=== PATIENT | male | born 1985 | race Caucasian/White ===

== ENCOUNTER → 2016-06-06 | Outpatient (CLI) | payer OTHER | LOC: M OUTALCOH 07:54 | PROVIDERS: ATTEND Psychiatry & Neurology Psychiatry | DX: Z13.9 Encounter for screening, unspecified (principal) ==

== ENCOUNTER 2017-11-10 07:37 | Emergency (ER) | payer OTHER, MEDICAID | END 2017-11-10 08:19 | disposition home or self-care (01) | LOC: M ED 07:37 | DX: H65.01 Acute serous otitis media, right ear (principal); K08.89 Other specified disorders of teeth and supporting structures; R59.1 Generalized enlarged lymph nodes | CPT/HCPCS: 99282 ==

== ENCOUNTER → 2018-12-24 | Outpatient (CLI) | payer MEDICAID, OTHER ==
[~2018-12-24] MED LIST: AMOX875T PO; IBUP-1022 PO; LOVE1INJ SC; MAGICMW SSP; SUDA1TAB3 PO
--- NOTE | 2018-12-24 18:43 | REP ---
Right upper extremity duplex venous ultrasound: History: Establish venous patency. Comparison is made with report of a prior study from [facility] dated November 02, 2018 showing thrombus in the right axillary vein extending to the proximal basilic vein. Findings: There is a focal nearly occlusive thrombus in the right subclavian vein. There is still some patency of the right subclavian vein but collateral is seen at the level of the thrombus entering the internal jugular vein. There is no other evidence of right upper extremity venous thrombosis. Basilic, cephalic, brachial, axillary and internal jugular vein segments are patent and compressible. Otherwise normal Doppler flow. Impression: There is a focal nearly occlusive thrombus in the right subclavian vein. Some collateral venous pathways are observed. Electronically Signed by Jus Horan MD 12/24/2018 07:53 P
== END ==
LOC: M RAD 15:44
PROVIDERS: ATTEND Internal Medicine Hematology & Oncology
DX: I82.621 Acute embolism and thrombosis of deep veins of right upper extremity (principal)

== ENCOUNTER → 2019-04-18 | Outpatient (CLI) | payer OTHER ==
[~2019-04-18] MED LIST changes: +ELIQ2.5T PO
--- NOTE | 2019-04-18 14:56 | REP ---
Clinical: Follow up right subclavian thrombus. Technique: Real time sandoval scale and color Doppler evaluation using linear high frequency transducer. Comparison: 12/24/2018. Findings: No flow is identified in the proximal subclavian vein which likely represents the previously noted area of near complete thrombus. The remainder of the right lower extremity deep venous structures appear patent and relatively normal including axillary, brachial, cephalic, and basilic veins. A large collateral vessel arising from the patent subclavian vein extending towards the internal jugular vein is again noted and similar to prior examination. Impression: 1. Focal area of possible chronic thrombus and lack of flow in the subclavian vein again noted. 2. Remainder examination is relatively patent/normal. Electronically Signed by Francisco Willis MD 04/18/2019 02:48 P
== END ==
LOC: M RAD 13:11
PROVIDERS: ATTEND Internal Medicine Hematology & Oncology
DX: Z86.718 Personal history of other venous thrombosis and embolism (principal); I87.9 Disorder of vein, unspecified

== ENCOUNTER 2020-06-04 20:06 | Inpatient (IN) | payer OTHER ==
[~2020-06-04] VITALS: Ht 182.9 cm; Wt 90.5 kg
[2020-06-04 20:52] LABS: HEMATOCRIT 44.2 % (42.0-52.0); HEMOGLOBIN 14.9 g/dl (13.5-17.5); MEAN CORPUSCULAR HEMOGLOBIN 31.2 pg (27.0-33.0); MEAN CORPUSCULAR HGB CONC 33.7 g/dl (32.0-36.5); MEAN CORPUSCULAR VOLUME 92.5 fl (80.0-96.0); PLATELET COUNT, AUTOMATED 269 10^3/uL (150-450); RED BLOOD COUNT 4.78 10^6/uL (4.30-6.10); WHITE BLOOD COUNT 6.6 10^3/uL (4.0-10.0)
[2020-06-04 21:30] LABS: ACETAMINOPHEN LEVEL < 2.0 UG/ML (10.0-30.0); ALBUMIN 3.7 GM/DL (3.2-5.2); ALT/SGPT 27 U/L (12-78); BILIRUBIN,DIRECT 0.1 MG/DL (0.0-0.2); BILIRUBIN,TOTAL 0.3 MG/DL (0.2-1.0); BLOOD UREA NITROGEN 12 MG/DL (7-18); CALCIUM LEVEL 8.6 MG/DL (8.5-10.1); CARBON DIOXIDE LEVEL 27 MEQ/L (21-32); CHLORIDE LEVEL 110 MEQ/L (98-107); ETHYL ALCOHOL (ETHANOL) < 0.003 % (0.000-0.010); GLOMERULAR FILTRATION RATE > 60.0 (>60); GLUCOSE, FASTING 105 MG/DL (70-100); POTASSIUM SERUM 4.1 MEQ/L (3.5-5.1); SALICYLATE LEVEL < 1.7 MG/DL (5.0-30.0); SODIUM LEVEL 141 MEQ/L (136-145); TOTAL PROTEIN 6.9 GM/DL (6.4-8.2)
[2020-06-04] MEDS ORDERED: LORazepam 2 MG TAB PO ONE (23:30)
[2020-06-04 23:54] LABS: AMPHETAMINES LEVEL URINE POSITIVE (NEGATIVE); BARBITURATES URINE NEGATIVE (NEGATIVE); BENZODIAZEPINES URINE NEGATIVE (NEGATIVE); CANNABINOIDS URINE NEGATIVE (NEGATIVE); COCAINE METABOLITE URINE NEGATIVE (NEGATIVE); METHADONE URINE NEGATIVE (NEGATIVE); OPIATES URINE NEGATIVE (NEGATIVE); PHENCYCLIDINE URINE NEGATIVE (NEGATIVE)
--- NOTE | 2020-06-05 05:10 | ECGEPIP ---
[facility] - ED Test Date: 2020-06-04 Pat Name: ELKIN RON Department: Room: - Gender: Male Documentation Nurse: Sheri CARBALLO : 1985 Requested By: Doug Powell Order Number: [id number] Reading MD: Gavin James Measurements Intervals [place] Rate: 62 P: 62 MO: 142 QRS: 33 QRSD: 96 T: 28 QT: 420 QTc: 426 Interpretive Statements Normal sinus rhythm with sinus arrhythmia INCOMPLETE RIGHT BUNDLE BRANCH BLOCK NO PRIORS FOR COMPARISON Electronically Signed on 06-05-2020 5:10:32 EDT by Gavin James
[2020-06-05] MEDS ORDERED: ASPI81CH33 PO (09:20)
[2020-06-05] MEDS: ASPIRIN 81 MG CHEW TABLET PO SCH (09:31)
[2020-06-05 11:25] LABS: RSV AMPLIFICATION NEGATIVE (NEGATIVE)
[2020-06-05] MEDS ORDERED: ADDE30CA3 PO (11:43)
[2020-06-05] MEDS ORDERED: PROAAER10 INH (11:43)
[2020-06-05] MEDS ORDERED: EPIN0.3I11 IM (11:43)
[2020-06-05] MEDS ORDERED: ASPI81TA26 PO (11:43)
[2020-06-05] MEDS ORDERED: MAALOX 30 ML SUSP *UDC PO PRN (15:25)
[2020-06-05] MEDS ORDERED: ACETAMINOPHEN TAB 650MG DOSE (2X325MG) PO PRN (15:25)
[2020-06-05] MEDS ORDERED: MOM 30ML SUSPENSION UDC PO PRN (15:25)
[2020-06-05] MEDS: traZODone 50 MG TAB PO PRN (20:08)
[2020-06-06 06:28] VITALS: BP 121/59
[2020-06-06] MEDS ORDERED: ASPIRIN 81 MG CHEW TABLET PO SCH (09:00)
[2020-06-06] MEDS: DIVALPROEX 250MG *ER* TAB PO SCH ×2 (09:10→20:19)
[2020-06-06] MEDS: CitaloPRAM (CeleXA) 10 MG TABLET PO SCH (09:10)
[2020-06-06] MEDS: ASPIRIN 81 MG CHEW TABLET PO SCH (10:02)
--- NOTE | 2020-06-06 10:17 | HPEPDOC ---
[facility] Medical History & Physical Date of Admission Jun 05, 2020 Date of Service: Jun 06, 2020 History and Physical Hospitalist history and physical examination dictated job #[id number] If H and P is needed urgently, please call Hyper-type at [phone] to stat transcribed. Vital Signs Vital Signs Date Time Temp Pulse Resp B/P (MAP) Pulse Ox O2 Delivery O2 Flow Rate FiO2 06/06/20 06:28 98.2 65 16 121/59 (79) 97 Room Air Laboratory Data Labs 24H Laboratory Tests 2 06/05/20 10:33: Coronavirus (COVID-19)(PCR) NEGATIVE, Influenza Type A (RT-PCR) NEGATIVE, Influenza Type B (RT-PCR) NEGATIVE, Respiratory Syncytial Virus (PCR) NEGATIVE Home Medications Scheduled Aspirin (Aspirin EC) 81 Mg Tablet.dr, 81 MG PO DAILY Dextroamphetamine/Amphetamine (Adderall Xr 30 mg Capsule) 30 Mg Cap.er.24h, 30 MG PO DAILY Scheduled PRN Albuterol Sulfate (Proair Hfa) 8.5 Gm Hfa.aer.ad, 2 PUFF INH QID PRN for SHORTNESS OF BREATH Epinephrine (Epinephrine) 0.3 Mg/0.3 Ml Auto.injct, 0.3 MG IM ASDIRECTED PRN for ALLERGIC REACTION Allergies Coded Allergies: hydrocodone (Verified Allergy, Unknown, VOMITNG, FEVER(CHILLS), ITCHY, 06/05/20) A-FIB/CHADSVASC A-FIB History Current/History of A-Fib/PAF?: No Current PO Anticoag Therapy: No Age/Risk Factor Scoring CHADSVASC: CHADSVASC Response (Comments) Value Age Risk Factor Age < 65 years old 0 Gender Risk Factor Male 0 Hx of CHF No 0 Hx of HTN No 0 Hx of Stroke/TIA/or VTE No 0 Hx of Diabetes No 0 Hx of Vascular Disease No 0 Total 0 Treatment Treatment ordered: NONE CLARA FOSTER MD Jun 06, 2020 10:01
--- NOTE | 2020-06-06 10:44 | HPE ---
HISTORY AND PHYSICAL DATE OF ADMISSION: 06/05/2020 CHIEF COMPLAINT: Routine medical examination for a psychiatric patient. HISTORY OF PRESENT ILLNESS: This is a 35-year-old male with a history of Lyme disease, asthma, bilateral ankle tendon repair, left hand injury with repair, right-sided PICC line with postprocedure DVT who follows at the [facility] for his history of Lyme disease; admitted to the inpatient health unit due to suicidal thoughts and depression. The patient otherwise denies any fever, chills, photophobia, neck rigidity, or neck pain. Denies weight gain or weight loss. Denies any shortness of breath, cough, postnasal drip, ear pain, blurred vision, changes in vision, decrease in visual acuity, nystagmus, nasal congestion, sore throat, lumps, bumps, rash, nodules or masses, nausea, vomiting, diarrhea, abdominal pain, bright red blood per rectum, melena, black or tarry stools, shortness of breath, chest pain, pressure, tightness, lightheadedness, dizziness, palpitations, cough, hemoptysis, dysuria, urgency, frequency, flank pain or chills, polyphagia, polydipsia, polyuria, joint pains, or muscle aches. Admits to severe depression and suicidal ideation. All other systems negative. PAST MEDICAL HISTORY: 1. Asthma. 2. Bilateral ankle tendon repair. 3. Left hand injury with repair. 4. Lyme disease. 5. Lyme meningitis. 6. DVT secondary to right PICC line. 7. Depression. 8. Suicidal ideation. PAST SURGICAL HISTORY: 1. Right PICC line. 2. Bilateral ankle tendon repair. 3. Left hand repair. ALLERGIES: HYDROCODONE. SOCIAL HISTORY: Smokes cigarettes 1/4 to 1/2 pack of cigarettes per day since age of 22. Patient has social alcohol use. Full code. Works for [employer]. FAMILY HISTORY: Father with stage 4 melanoma at age 65. Mother alive age 63 with unknown medical problems. REVIEW OF SYSTEMS: Per HPI. Ten-point system otherwise negative. PHYSICAL EXAMINATION: VITAL SIGNS: Temperature 98.2, pulse 65, respiratory rate 16, blood pressure 121/59, 97% on room air. GENERAL: The patient is in no distress. No conversational dyspnea. No pallor, icterus, or jaundice. HEENT: Pupils equally round and reactive. Extraocular muscles are intact. NECK: No JVD, thyromegaly, or cervical lymphadenopathy. No carotid bruit. No stridor. LUNGS: Clear to auscultation. No wheezing, rales, or rhonchi. HEART: S1, S2. Sinus rhythm. No murmurs, rubs, or gallops. ABDOMEN: Soft, nontender, and nondistended. Positive bowel sounds x4 quadrants. EXTREMITIES: No cyanosis, clubbing, or pitting edema. LABORATORY DATA: A 06/04 CBC, metabolic panel, liver function tests, toxicology screen, and respiratory panel reviewed. ASSESSMENT AND PLAN: This is a 35-year-old male with a history of Lyme disease, asthma, bilateral ankle tendon repair, left hand injury, Lyme meningitis, right PICC line-induced deep vein thrombosis (DVT), depression, and suicidal ideation admitted to the inpatient mental health unit due to severe depression. IMPRESSION: 1. Depression and suicidal ideation managed by the psychiatric team. 2. Asthma. No acute exacerbation. The patient does not require maintenance therapy and has had no symptoms for the past two years. 3. 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 Outpatient follow-up in [place] with Dr. Espinoza. 4. History of deep vein thrombosis (DVT) secondary to peripherally inserted central catheter (PICC) line, resolved. Hospitalist will sign off. Please reconsult if new acute medical problems occur. The patient requests evaluation for allergies as output. Hospitalist recommends referral to instrumental teacher, Dr. Bundy as outpatient for a RAST skin test. [facility]
--- NOTE | 2020-06-06 12:43 | MHHPE ---
[facility] HISTORY AND PHYSICAL DATE OF ADMISSION: 06/05/2020 IDENTIFYING DATA: He is a 35-year-old white male living with his fiance and four children, working in [employer]. He is self-referred to the emergency room (ER) for depression and suicidal thoughts. LEGAL STATUS: 9.39. HISTORY OF PRESENT ILLNESS: Patient reports he has been depressed for the last 1-1/2 years. He had meningitis and had some complications of meningitis, after which he progressively became more and more depressed. It has become worse since the last 4 months. About 2 months ago patient attempted overdosing with muscle relaxants, and about 5-6 days ago he closed himself in the bathroom and took a knife with him to end his life. His fiance knocked at the door, and somehow he calmed down, and he decided to come to the emergency room for help. He complains of decreased sleep, decreased appetite, low energy, feeling worthless and hopeless, and sometimes some suicidal thoughts. Patient has history of hypomania. Feels at times hyper, extremely happy, has racing thoughts, pressured speech. Does not the duration. It lasts. Patient also has history of panic attacks. Denies any real stressors; however, patient is on a project to renovate his house. Currently on no medications. PAST PSYCHIATRIC HISTORY: He has never been hospitalized in the past; however, he was given Zoloft as an outpatient. He had side effects from it, and he stopped taking it. He was also prescribed Adderall by some doctor. SUICIDAL HISTORY: Patient denies any suicide attempt, but there were frequent suicidal thoughts at times. DRUG/ALCOHOL HISTORY: Denies any drug use. He socially drinks about once or twice a week. LEGAL HISTORY: Denies legal problems. MEDICAL HISTORY: Patient has history of Lyme disease, arthritis, history of ankle surgery, bronchitis, asthma. FAMILY HISTORY: Mother has history of depression. PERSONAL HISTORY: He was raised by both father and mother. No abuse. He has one brother and two sisters. He completed high school graduation, and he has done some semesters in college. Currently working in [employer]. MENTAL STATUS EXAMINATION: Casually dressed, cooperative. Makes good eye contact. Speech, rate, rhythm, volume are good, however, at times somewhat pressured and some interruption with the train of thoughts. Mood is depressed. Affect is constricted. Thought process goal directed. Thought content: Has some vague suicidal thoughts without plans. Denied any auditory or visual hallucinations currently; however, at times he has some vague hallucinations, which he attributes to his depression. Also he reports memory problem, particularly short term. Forgets things, but memory testing was normal. Immediate, remote, and recent are normal. He is alert and oriented to time, place, and person. Currently denies any suicidal thoughts. VITAL SIGNS: Temperature 98.2, pulse 65, respirations 16, blood pressure 121/59, pulse oximetry 97. LABORATORY DATA: CBC within normal limits. CMP within normal limits. His urine toxicology was positive for amphetamines. He reported that he was prescribed Adderall. REVIEW OF SYSTEMS: CONSTITUTIONAL: No fever. No weakness. HEENT: No epistaxis. No headache. RESPIRATORY: Denies shortness of breath. Denies cough. CARDIOVASCULAR: Denies palpitations. Denies chest pain. GASTROINTESTINAL: Denies abdominal pain or distention. GENITOURINARY: Denies any hematuria or dysuria. NEUROLOGIC: Denies dizziness. DIAGNOSES: 1. Bipolar 2 disorder, depressed. 2. Panic disorder without agoraphobia. 3. History of meningitis. 4. Lyme disease. 5. Bronchial asthma. ASSESSMENT AND PLAN: 1. Patient currently is depressed. Has occasional suicidal thoughts. Reports after being in the hospital he feels safe. Had some suicide attempt in the last 2 months. I would like to admit to inpatient mental health unit (IMHU). 2. Patient will be followed up by hospitalist for medical needs. 3. Patient will be seen by social work supervisor and occupational therapy (OT). 4. Patient will attend activities. Will receive individual, group, and milieu therapy. 5. Patient will be on suicide precautions. 6. For medications, I will place him on Depakote ER 250 mg twice daily and Celexa 10 mg once daily. Titrate the dose. ESTIMATED LENGTH OF STAY: 5-6 days. TIME SPENT ON THE PATIENT: 1 hour.
[2020-06-06 16:21] VITALS: BP 129/78
[2020-06-06] MEDS: traZODone 50 MG TAB PO PRN (20:18)
[2020-06-07 07:14] VITALS: BP 118/67
[2020-06-07] MEDS: CitaloPRAM (CeleXA) 10 MG TABLET PO SCH (08:48)
[2020-06-07] MEDS: ASPIRIN 81 MG CHEW TABLET PO SCH (08:48)
[2020-06-07] MEDS: DIVALPROEX 250MG *ER* TAB PO SCH ×3 (08:48→20:24)
[2020-06-07 16:13] VITALS: BP 125/74
[2020-06-07] MEDS: traZODone 50 MG TAB PO PRN (20:24)
[2020-06-08 06:00] VITALS: BP 139/73
[2020-06-08] MEDS: ASPIRIN 81 MG CHEW TABLET PO SCH (08:43)
[2020-06-08] MEDS: CitaloPRAM (CeleXA) 10 MG TABLET PO SCH (08:43)
[2020-06-08] MEDS: DIVALPROEX 250MG *ER* TAB PO SCH ×3 (08:44→20:04)
--- NOTE | 2020-06-08 09:23 | MHIPN ---
[facility] PROGRESS NOTE DATE: 06/07/2020 CHIEF COMPLAINT: "I don't belong here, I'm feeling fine. I should be discharged." SUBJECTIVE: He is a 35-year-old white male living with his fianc and four children. He was admitted because of depressed mood and suicidal thoughts. The patient has been depressed for the last one and a half years after he suffered meningitis. The patient also has a history of hypomania. Currently taking his medications. Denies any side effects from the medications. His sleep and appetite are improving. MENTAL STATUS EXAMINATION: The patient is casually dressed. Makes good eye contact. Clean dressed. Speech rate and volume are good. However there is some stammering and there is interruption in his train of thoughts. Mood is depressed. Affect is constricted. Thought process at times circumstantial. Complaints of vague suicidal thoughts without plans. Denied any auditory or visual hallucinations. Denied any tactile hallucinations. He also reports some memory problem, however while testing it is normal.. He is oriented to place, person and time. PHYSICAL EXAMINATION: VITAL SIGNS: Temperature 96.6, pulse is 64, respiratory rate is 16, blood pressure is 118/67. Pulse oximetry 98. LABORATORY STUDIES: CBC within normal limits. CMP within normal limits. Toxicology was positive for amphetamines. The patient is taking Adderall. DIAGNOSIS: 1. Bipolar 2 disorder with depressed mood. 2. Panic disorder without agoraphobia. 3. History of meningitis. 4. Lyme disease. 5. Bronchial asthma. RECOMMENDATIONS AND PLAN: The patient currently is improving, denies any side effects of the medications. 1. I will increase his Depakote to 500 mg twice daily and increase his Citalopram to 20 mg once daily. 2. Continue individual, group and milieu therapy. Estimated length of stay 3-4 days. Time spent is twenty-five minutes. [facility]
--- NOTE | 2020-06-08 15:36 | MHIPN ---
[facility] PROGR[facility] NOTE DATE: 06/08/2020 CHIEF COMPLAINT: "I'm feeling better today. My sleep and appetite were good." SUBJECTIVE: He is a 35-year-old white male living with his fiancee and four children who works at [employer] who was admitted because of suicidal thoughts and a possible attempt. Two months ago, patient attempted overdosing with muscle relaxants. Five to six days ago, he closed himself in the bathroom and took a knife with him. He was noncompliant with his medications. Currently he is doing better. MENTAL STATUS EXAMINATION: Casually dressed, cooperative. Made good eye contact. Speech: Rate, rhythm, volume are good; however, at times somewhat pressured. Mood is euthymic. Affect is constricted. Thought process: Goal-directed. Though content: Denied any suicidal thoughts. Denied any auditory or visual hallucinations. He had reported that he had some vague hallucinations, probably related to his depression. DIAGNOSES: 1. Bipolar 2 disorder, depressed. 2. Panic disorder without agoraphobia. 3. History of meningitis. 4. Lyme disease. 5. Bronchial asthma. VITAL SIGNS: Temperature 98.5, respiratory rate 20, pulse 63, blood pressure 139/73, pulse oximetry 99. ASSESSMENT AND PLAN: Patient currently is improving. CURRENT MEDICATIONS: - Depakote 250 mg three times a day - Celexa 20 mg daily. ESTIMATED LENGTH OF STAY: Three to four days. TIME SPENT: Twenty-five minutes.
[2020-06-08 16:12] VITALS: BP 128/69
[2020-06-08] MEDS: traZODone 50 MG TAB PO PRN (20:03)
[2020-06-09 06:27] VITALS: BP 134/60
[2020-06-09] MEDS: ASPIRIN 81 MG CHEW TABLET PO SCH (08:15)
[2020-06-09] MEDS: DIVALPROEX 250MG *ER* TAB PO SCH ×3 (08:15→19:59)
[2020-06-09] MEDS: CitaloPRAM (CeleXA) 10 MG TABLET PO SCH (08:15)
[2020-06-09 16:19] VITALS: BP 128/74
[2020-06-09] MEDS: traZODone 50 MG TAB PO PRN (19:58)
[2020-06-10 06:23] VITALS: BP 124/70
[2020-06-10] MEDS: CitaloPRAM (CeleXA) 10 MG TABLET PO SCH (08:11)
[2020-06-10] MEDS: ASPIRIN 81 MG CHEW TABLET PO SCH (08:12)
[2020-06-10] MEDS: DIVALPROEX 250MG *ER* TAB PO SCH ×3 (08:12→21:00)
--- NOTE | 2020-06-10 09:35 | MHIPN ---
[facility] PROGRESS NOTE DATE: 06/09/2020 VITAL SIGNS: Blood pressure 128/74, pulse 84, temperature 98.4. This is a video assessment, he is seen in the presence of staff. CHIEF COMPLAINT: Says feels okay today. SUBJECTIVE: Indicates feels okay, better, less anxious, less depressed, and that he had a good night, slept well. Says did not have any firm plans of harming himself, acknowledges had suicidal thoughts, says had tried getting in to see a clinician, and the wait he was told was a month. He has been looking for a therapist. MENTAL STATUS EXAMINATION: He is neat, he is cooperative. There is no agitation, no psychomotor retardation. He is coherent. No evidence of any thoughts of harming anyone else. Denies any suicidal thoughts at present. No evidence of any psychosis. Cognition grossly intact. Judgment is good, insight fair. ASSESSMENT: Bipolar type 2 disorder, current episode depressed. Panic disorder without agoraphobia. PLAN: Continue current care, including what he has been started on by the psychiatrist, Depakote 250 mg three times a day, Celexa 20 mg daily, tolerates them well so far. He should be encouraged to continue with participation in activities in the unit.
[2020-06-10 16:27] VITALS: BP 128/77
[2020-06-10] MEDS: traZODone 50 MG TAB PO PRN (21:00)
[2020-06-11 06:00] VITALS: BP 142/77
[2020-06-11] MEDS: CitaloPRAM (CeleXA) 10 MG TABLET PO SCH (08:02)
[2020-06-11] MEDS: DIVALPROEX 250MG *ER* TAB PO SCH (08:03)
[2020-06-11] MEDS: ASPIRIN 81 MG CHEW TABLET PO SCH (08:03)
[2020-06-11] MEDS ORDERED: DEPA250T2 PO (10:39)
[2020-06-11] MEDS ORDERED: CELE10TA PO (10:39)
--- NOTE | 2020-06-11 11:25 | MHDS ---
DISCHARGE SUMMARY DATE OF ADMISSION: 06/04/2020 DATE OF DISCHARGE: 06/11/2020 DIAGNOSES: 1. Bipolar 2 disorder. 2. Panic disorder without agoraphobia. 3. History of meningitis. 4. Lyme disease. 5. Bronchial asthma. IDENTIFYING DATA: He is a 35-year-old white male living with his fiancee and four children working at [employer], was admitted because of suicidal thoughts and possible attempt two months ago by overdosing on muscle relaxants. For history of present illness, past psychiatric history, medical history, substance abuse history, social history, family history please refer to the initial evaluation. COURSE IN THE HOSPITAL: The patient initially was depressed, ambivalent about suicidal thoughts. He was placed on Depakote 250 mg three times a day and Celexa 20 mg once daily. He was also placed in individual and group therapy. The patient was encouraged to participate in activities. His self-esteem improved. He started participating in activities. His isolation decreased. His mood improved. He related well with the staff. There were no behavorial problems on the unit. He was attending groups and activities. No side effect from the medication, denied any suicidal or homicidal ideas. The plan was to discharge him home. LABS: CBC within normal limits. CMP within normal limits. Toxicology was negative. VITAL SIGNS: Temperature 98.4, respirations 20, temperature 98.4, pulse is 62, blood pressure 142/77. Pulse oximetry 100. DISCHARGE MEDICATIONS: 1. Citalopram 20 mg every morning. 2. Depakote 250 mg three times a day. The patient will be discharged home. He will follow up at [facility].
== END 2020-06-11 11:40 | disposition home or self-care (01) | DRG 753 ==
LOC: M ED 20:06 → M ED INP 06-05 15:21 → M PSY 06-05 17:14
PROVIDERS: ADMIT Psychiatry & Neurology Psychiatry; ATTEND Psychiatry & Neurology Psychiatry
DX: F31.81 Bipolar II disorder (principal); F41.0 Panic disorder [episodic paroxysmal anxiety]; Z86.718 Personal history of other venous thrombosis and embolism; Z88.5 Allergy status to narcotic agent; F17.210 Nicotine dependence, cigarettes, uncomplicated; Z79.899 Other long term (current) drug therapy; Z86.61 Personal history of infections of the central nervous system

== ENCOUNTER → 2020-06-25 | Outpatient (CLI) | payer OTHER, MEDICAID ==
[~2020-06-25] MED LIST changes: +ADDE30CA3 PO; +ASPI81CH33 PO; +ASPI81TA26 PO; +CELE10TA PO; +DEPA250T2 PO; +EPIN0.3I11 IM; +PROAAER10 INH
--- NOTE | 2020-06-25 15:22 | REPPI ---
INDICATION: JOINT PAIN, HX LYME DISEASE COMPARISON: None. TECHNIQUE: AP, lateral, and swimmers views. FINDINGS: Alignment and kyphosis is maintained. Vertebral bodies intact. No acute fracture / compression injury or subluxation. No degenerative changes. Paravertebral soft tissues are normal. IMPRESSION: Normal age-appropriate thoracic spine series. <Electronically signed by Francisco Willis > 06/25/20 [id number]
--- NOTE | 2020-06-25 15:27 | REPPI ---
INDICATION: JOINT PAIN, HX LYME DISEASE COMPARISON: None. TECHNIQUE: AP and lateral views of the right and left knee followed by AP weightbearing view of the right and left knee. FINDINGS: Right and left knee are essentially symmetric and age-appropriate. No overt osteoarthritic or inflammatory arthritic changes are appreciated. AP weightbearing view demonstrates relatively stable symmetric appearance of the tibiofemoral joint spaces. IMPRESSION: Relatively symmetric normal age-appropriate bilateral knee radiographs. <Electronically signed by Francisco Willis > 06/25/20 [id number]
[2020-06-25 19:31] LABS: C REACTIVE PROTEIN QUANTITATIV < 0.30 MG/DL (0.00-0.30); RHEUMATOID FACTOR QUANT < 10.0 IU/ML (<15.0)
== END ==
LOC: M PLAIMG 14:49
PROVIDERS: ATTEND Internal Medicine Infectious Disease
DX: M25.561 Pain in right knee (principal); Z86.19 Personal history of other infectious and parasitic diseases; M25.562 Pain in left knee

== ENCOUNTER 2023-09-16 00:53 | Emergency (ER) | payer MEDICAID, OTHER ==
[~2023-09-16] VITALS: Ht 182.9 cm; Wt 86.1 kg
[2023-09-16 01:21] VITALS: BP 133/75; TEMP 98; O2SAT 97
[2023-09-16 01:29] LABS: BASO % 0.6 % (0.0-1.0); EOS # 0.1 10^3/uL (0.0-0.5); HEMATOCRIT 42.5 % (42.0-52.0); HEMOGLOBIN 15.1 g/dl (13.5-17.5); LYMPH # 2.2 10^3/uL (1.5-5.0); LYMPH % 31.1 % (24.0-44.0); MEAN CORPUSCULAR HEMOGLOBIN 33.8 pg (27.0-33.0); MEAN CORPUSCULAR HGB CONC 35.5 g/dl (32.0-36.5); MEAN CORPUSCULAR VOLUME 95.1 fl (80.0-96.0); MONO # 0.6 10^3/uL (0.0-0.8); MONO % 8.9 % (2.0-8.0); NEUTROPHILS # 4.2 10^3/uL (1.5-8.5); PLATELET COUNT, AUTOMATED 301 10^3/uL (150-450); RED BLOOD COUNT 4.47 10^6/uL (4.30-6.10); WHITE BLOOD COUNT 7.2 10^3/uL (4.0-10.0)
[2023-09-16 01:53] LABS: THYROID STIMULATING HORMONE 1.445 uIU/ML (0.55-4.78)
[2023-09-16 01:55] LABS: BARBITURATES URINE NEGATIVE (NEGATIVE); BENZODIAZEPINES URINE NEGATIVE (NEGATIVE); CANNABINOIDS URINE NEGATIVE (NEGATIVE); COCAINE METABOLITE URINE NEGATIVE (NEGATIVE); METHADONE URINE NEGATIVE (NEGATIVE); OPIATES URINE NEGATIVE (NEGATIVE); PHENCYCLIDINE URINE NEGATIVE (NEGATIVE)
[2023-09-16 01:58] LABS: AMPHETAMINES LEVEL URINE POSITIVE (NEGATIVE); ETHYL ALCOHOL (ETHANOL) 0.192 % (0.000-0.010)
[2023-09-16 01:59] LABS: SALICYLATE LEVEL < 3.0 MG/DL (<30)
[2023-09-16 02:00] LABS: ALBUMIN 3.9 G/DL (3.2-5.2); ALKALINE PHOSPHATASE 74 U/L (46-116); ALT/SGPT 20 U/L (7.0-40); AST/SGOT < 8 U/L (<34); BILIRUBIN,DIRECT 0.2 MG/DL (<0.4); BILIRUBIN,TOTAL 0.5 MG/DL (0.3-1.2); BLOOD UREA NITROGEN 6 MG/DL (9-23); CARBON DIOXIDE LEVEL 22 MMOL/L (20-31); CHLORIDE LEVEL 109 MMOL/L (98-107); CREATININE FOR GFR 0.81 MG/DL (0.70-1.30); GLOMERULAR FILTRATION RATE > 60.0 (>60); GLUCOSE, FASTING 115 MG/DL (60-100); POTASSIUM SERUM 3.2 MMOL/L (3.5-5.1); SODIUM LEVEL 140 MMOL/L (136-145)
[2023-09-16] MEDS ORDERED: IBUP200C25 PO (11:16)
[2023-09-16] MEDS ORDERED: ALBU8.5H INH (11:16)
[2023-09-16] MEDS ORDERED: CITA40TA7 PO (11:16)
[2023-09-16] MEDS ORDERED: HOME MED LIST COMPLETE! XX SCH (11:20)
[2023-09-16] MEDS: POTASSIUM CHLORIDE 10MEQ SR TABLET PO ONE (13:00)
== END 2023-09-16 17:12 | disposition home or self-care (01) ==
LOC: M ED 00:53
DX: F19.10 Other psychoactive substance abuse, uncomplicated (principal); F43.0 Acute stress reaction; J45.909 Unspecified asthma, uncomplicated; F17.200 Nicotine dependence, unspecified, uncomplicated; F43.20 Adjustment disorder, unspecified; F10.10 Alcohol abuse, uncomplicated; F31.30 Bipolar disorder, current episode depressed, mild or moderate severity, unspecified; F40.01 Agoraphobia with panic disorder; Z86.19 Personal history of other infectious and parasitic diseases; Z79.82 Long term (current) use of aspirin; Z79.899 Other long term (current) drug therapy; Z88.5 Allergy status to narcotic agent